=== PATIENT | female | born 1995 | race Caucasian/White ===

== ENCOUNTER 2017-12-16 02:28 | Emergency (ER) | payer OTHER, MEDICAID, SELFPAY ==
[2017-12-16 02:31] VITALS: BP 122/77; PULSE 95; RESP 16; TEMP 36.5; O2SAT 98
--- NOTE | 2017-12-16 02:43 | DI.RAD_ITS ---
SYMPTOM/DIAGNOSIS: COUGH, CHEST PAIN PA AND LATERAL CHEST: The heart is normal in size. The lungs are clear. The mediastinal structures and pleura appear intact. CONCLUSION: Normal chest.
--- NOTE | 2017-12-16 02:56 | W.ED.GENAD ---
Discharge Plan Disposition Patient Disposition: HOME Discharge Details Chief Complaint: RespSymp Clinical Impression: Contusion of rib on left side, Bronchitis ED Provider: Celestino Bingham Home Meds and New Rx's Prescriptions: New doxycycline hyclate 100 mg capsule 100 mg PO BID Qty: 11 RF: 0 lidocaine 5 % adhesive patch,medicated 1 patch TP DAILY Qty: 7 RF: 0 Continue citalopram [Celexa] 10 MG tablet 10 mg PO DAILY Qty: 30 RF: 5 Discharge Instructions Instructions: Acute Bronchitis (ED), Rib Contusion (ED) Additional Instructions: Please take ibuprofen 600 mg every 6 hours as needed for pain. Take Tylenol 650 mg every 6 hours as needed for pain. Take antibiotic as prescribed. Please contact your primary care physician to arrange follow-up. Return to the ER for any worsening or new concerning symptoms. Stand Alone Forms: Work Release Medical Decision Making 22-year-old female presents with left lateral rib pain for the past 2 days after coughing spell. Suspect rib contusion versus fracture. Patient is saturating well no respiratory distress. Chest x-ray interpreted by radiology: Clear lungs with no pneumothorax. Given persistence of cough, I am concerned about potential bacterial process. Plan to treat for bronchitis with doxycycline. Ibuprofen and Tylenol given for pain. Lidoderm patch applied. HPI General Mode of arrival: ambulatory. Date/Time Provider Initiated Documentation: 12/16/17 02:42. Limitations to Documentation: no limitations. Information obtained by: patient. HPI Narrative: 22-year-old female presents with chief complaint of rib pain. Patient notes she has had a cough for the past 4-6 weeks. Cough has improved recently but 2 days ago she experienced a coughing fit and had severe pain in her left rib. She continues to have pain with deep inspiration and with cough. Pain is sharp. Patient denies shortness of breath. No fevers. Related Data Home Medications Medication Instructions Recorded Confirmed citalopram [Celexa] 10 mg PO DAILY #30 tab-cap 08/01/16 12/16/17 doxycycline hyclate 100 mg PO BID #11 cap 12/16/17 lidocaine 1 patch TP DAILY #7 each 12/16/17 Previous Rx's Medication Instructions Recorded doxycycline hyclate 100 mg PO BID #11 cap 12/16/17 lidocaine 1 patch TP DAILY #7 each 12/16/17 Allergies Allergy/AdvReac Type Severity Reaction Status Date / Time No Known Allergies Allergy Unverified 12/16/17 02:35 General Stated Complaint: RespSymp LELAND: 4 Review of Systems Constitutional Denies fever(s) Cardiovascular Reports system reviewed and no additional complaints, except as docu Respiratory Reports as per HPI and Reports cough Gastrointestinal Denies abdominal pain PFSH Family History Grandfather Diabetes Medical History Depression Herpes simplex Social History Smoking/Tobacco Use Status: Current-Occasional Surgical History Dilation and curettage Exam Const General: cooperative and no acute distress HENMT Mouth: moist mucous membranes Eyes Conjunctivae: normal conjunctivae Sclera: normal sclerae Chest Chest: tenderness rib (left lateral 6th) Resp Effort & Inspection: cough Auscultation: clear to auscultation bilaterally, no rales, no rhonchi and no wheezes Cardio Jugular venous pressure: no JVD Rate: regular rate and not tachycardic Rhythm: regular rhythm Neuro General: alert and awake Course Vital Signs Temperature 36.5 C 12/16/17 02:31 Pulse 95 H 12/16/17 02:31 Respiratory Rate 16 12/16/17 02:31 Blood Pressure 122/77 12/16/17 02:31 Pulse Oximetry 98 12/16/17 02:31 Temperature 36.5 C 12/16/17 02:31 Temperature Source Skin 12/16/17 02:31 Pulse 95 H 12/16/17 02:31 Respiratory Rate 16 12/16/17 02:31 Respiratory Effort Non-Labored 12/16/17 02:36 Respiratory Depth Normal 12/16/17 02:36 Blood Pressure 122/77 12/16/17 02:31 Pulse Oximetry 98 12/16/17 02:31 Pain Level 5 12/16/17 02:31
--- NOTE | 2017-12-16 03:05 | DI.VRAD_ITS ---
EXAM: XR Chest, 2 Views EXAM DATE/TIME: 12/16/2017 2:44 AM CLINICAL HISTORY: 22 years old, female; Signs and symptoms; Cough TECHNIQUE: XR of the chest, 2 views. COMPARISON: No relevant prior studies available. FINDINGS: Lungs: Clear lungs. Pleural space: No pneumothorax. No sizable pleural effusion. Heart/Mediastinum: No cardiomegaly. Bones/joints: Unremarkable for patient's age. IMPRESSION: Clear lungs. Dictated and Authenticated by: Seb Munoz MD. Ordering:KATH GURROLA MD
--- NOTE | 2017-12-16 03:25 | ED.GENADUL_ITS ---
Discharge Plan Disposition Patient Disposition: HOME Discharge Details Chief Complaint: RespSymp Clinical Impression: Contusion of rib on left side, Bronchitis ED Provider: Celestino Bingham Home Meds and New Rx's Prescriptions: New doxycycline hyclate 100 mg capsule 100 mg PO BID Qty: 11 RF: 0 lidocaine 5 % adhesive patch,medicated 1 patch TP DAILY Qty: 7 RF: 0 Continue citalopram [Celexa] 10 MG tablet 10 mg PO DAILY Qty: 30 RF: 5 Discharge Instructions Instructions: Acute Bronchitis (ED), Rib Contusion (ED) Additional Instructions: Please take ibuprofen 600 mg every 6 hours as needed for pain. Take Tylenol 650 mg every 6 hours as needed for pain. Take antibiotic as prescribed. Please contact your primary care physician to arrange follow-up. Return to the ER for any worsening or new concerning symptoms. Stand Alone Forms: Work Release Medical Decision Making 22-year-old female presents with left lateral rib pain for the past 2 days after coughing spell. Suspect rib contusion versus fracture. Patient is saturating well no respiratory distress. Chest x-ray interpreted by radiology: Clear lungs with no pneumothorax. Given persistence of cough, I am concerned about potential bacterial process. Plan to treat for bronchitis with doxycycline. Ibuprofen and Tylenol given for pain. Lidoderm patch applied. HPI General Mode of arrival: ambulatory . Date/Time Provider Initiated Documentation: 12/16/17 02:42 . Limitations to Documentation: no limitations . Information obtained by: patient . HPI Narrative: 22-year-old female presents with chief complaint of rib pain. Patient notes she has had a cough for the past 4-6 weeks. Cough has improved recently but 2 days ago she experienced a coughing fit and had severe pain in her left rib. She continues to have pain with deep inspiration and with cough. Pain is sharp. Patient denies shortness of breath. No fevers. Related Data Home Medications Medication Instructions Recorded Confirmed citalopram [Celexa] 10 mg PO DAILY #30 tab-cap 08/01/16 12/16/17 doxycycline hyclate 100 mg PO BID #11 cap 12/16/17 lidocaine 1 patch TP DAILY #7 each 12/16/17 Previous Rx's Medication Instructions Recorded doxycycline hyclate 100 mg PO BID #11 cap 12/16/17 lidocaine 1 patch TP DAILY #7 each 12/16/17 Allergies Allergy/AdvReac Type Severity Reaction Status Date / Time No Known Allergies Allergy Unverified 12/16/17 02:35 General Stated Complaint: RespSymp LELAND: 4 Review of Systems Constitutional Denies fever(s) Cardiovascular Reports system reviewed and no additional complaints, except as docu Respiratory Reports as per HPI and Reports cough Gastrointestinal Denies abdominal pain PFSH Family History Grandfather Diabetes Medical History Depression Herpes simplex Social History Smoking/Tobacco Use Status: Current-Occasional Surgical History Dilation and curettage Exam Const General: cooperative and no acute distress HENMT Mouth: moist mucous membranes Eyes Conjunctivae: normal conjunctivae Sclera: normal sclerae Chest Chest: tenderness rib (left lateral 6th) Resp Effort & Inspection: cough Auscultation: clear to auscultation bilaterally, no rales, no rhonchi and no wheezes Cardio Jugular venous pressure: no JVD Rate: regular rate and not tachycardic Rhythm: regular rhythm Neuro General: alert and awake Course Vital Signs Temperature 36.5 C 12/16/17 02:31 Pulse 95 H 12/16/17 02:31 Respiratory Rate 16 12/16/17 02:31 Blood Pressure 122/77 12/16/17 02:31 Pulse Oximetry 98 12/16/17 02:31 Temperature 36.5 C 12/16/17 02:31 Temperature Source Skin 12/16/17 02:31 Pulse 95 H 12/16/17 02:31 Respiratory Rate 16 12/16/17 02:31 Respiratory Effort Non-Labored 12/16/17 02:36 Respiratory Depth Normal 12/16/17 02:36 Blood Pressure 122/77 12/16/17 02:31 Pulse Oximetry 98 12/16/17 02:31 Pain Level 5 12/16/17 02:31
[2017-12-16] MEDS: Acetaminophen 325 MG TAB 650 MG PO (03:29)
[2017-12-16] MEDS: Doxycycline Hyclate 100 MG CAP PO (03:29)
[2017-12-16] MEDS: Ibuprofen 600 MG TAB PO (03:30)
[2017-12-16] MEDS: Lidocaine 5% Patch 1 PATCH TP (03:30)
== END 2017-12-16 03:38 | disposition home or self-care (01) ==
LOC: ER 03:47
PROVIDERS: Emergency Provider Student in an Organized Health Care Education/Training Program; PCP Family Medicine
DX: S20.212A Contusion of left front wall of thorax, initial encounter (principal); J20.9 Acute bronchitis, unspecified; X50.9XXA Other and unspecified overexertion or strenuous movements or postures, initial encounter
CPT/HCPCS: 99283; 71046

== ENCOUNTER 2019-11-04 05:13 | Outpatient (CLI) | payer MEDICAID, SELFPAY ==
[2019-11-04 16:11] LABS: Kit/Specimen SENT
== END 2019-11-04 05:33 ==
PROVIDERS: PCP Family Medicine; Visit Provider Obstetrics & Gynecology Maternal & Fetal Medicine
DX: O28.3 Abnormal ultrasonic finding on antenatal screening of mother (principal)
CPT/HCPCS: 36415

== ENCOUNTER 2020-05-04 19:11 | Outpatient (REF) | payer MEDICAID, SELFPAY ==
[2020-05-04 20:11] LABS: BUN 13 mg/dL (7-18); CREATININE 0.6 mg/dL (0.55-1.02); Calcium 9.3 mg/dL (8.5-10.1); Chloride 104 mmol/L (98-107); Glucose 84 mg/dL (74-106); Potassium 3.7 mmol/L (3.5-5.1); Sodium 141 mmol/L (136-145); TSH (W/Ref FT4) 0.88 uIU/mL (0.36-3.74)
[2020-05-04 20:25] LABS: HCT 37.1 % (36.0-46.0); HGB 11.9 g/dL (11.2-15.7); MCH 27.9 pg (27.0-33.0); MCHC 32.1 % (32.0-36.0); MCV 86.9 fL (80-95); MPV 10.5 fL (8.0-11.0); Platelet Count 262 10^3/uL (130-400); RBC 4.27 10^6/uL (3.93-5.22); RDW 14.5 % (11.7-14.6); RDW-SD 45.8 fL; WBC 5.91 10^3/uL (4.4-10.8)
[2020-05-05 05:02] LABS: Vitamin D 25 Total 13.9 ng/ml (30-100)
== END 2020-05-04 19:12 | disposition home or self-care (01) ==
LOC: NCHCN 19:11
PROVIDERS: PCP Family Medicine; Visit Provider Nurse Practitioner Psychiatric/Mental Health
DX: F32.9 Major depressive disorder, single episode, unspecified (principal); E55.9 Vitamin D deficiency, unspecified
CPT/HCPCS: 80048; 82306; 85027; 84443

== ENCOUNTER 2021-10-02 11:30 | Outpatient (REF) | payer MEDICAID, SELFPAY ==
--- NOTE | 2021-10-02 11:00 | PAPFT_PTH ---
PATIENT: Luis Funes LOC: NCN #:[id number] AGE/SX: 26/F ROOM: RE10/02/[address]: Luisana Rob : 1995 BED: DIS: 10/02/2021 SPEC #: [id number] RECD: 10/02/21 17:04 STATUS: QUYNH [facility] #: [id number] POP: 10/02/21 11:[address]: Luisana Rob DEPT: [facility] Cytology RECD BY: Catherine Orozco Tissues: 1 - CX/ENDOCX FOR PAP SMEARS Procedures: PAP THIN PREP/UVM Screening HPV DNA PROBE Comments: [id number]
[2021-10-02 15:25] LABS: TSH (W/Ref FT4) 2.63 uIU/mL (0.36-3.74)
== END 2021-10-02 11:31 | disposition home or self-care (01) ==
LOC: NCHCN 11:30
PROVIDERS: PCP Family Medicine; Visit Provider Family Medicine
DX: Z12.4 Encounter for screening for malignant neoplasm of cervix (principal); Z11.51 Encounter for screening for human papillomavirus (HPV)
CPT/HCPCS: 88142; 84443; 87624

== ENCOUNTER 2023-03-15 10:58 | Emergency (ER) | payer MEDICAID, SELFPAY ==
[2023-03-15 11:03] VITALS: BP 114/63; PULSE 75; RESP 16; TEMP 36.9; O2SAT 100
--- NOTE | 2023-03-15 11:15 | DI.RAD_ITS ---
Exam(s) XR ANKLE LT COMPLETE EXAM: XR ANKLE LT COMPLETE CLINICAL HISTORY: fall/pain TECHNIQUE: 2D digital imaging was performed of the left ankle. Three images were obtained. AP, lat eral and oblique views were obtained. COMPARISON: No exams were available for comparison FINDINGS: BONES: No acute fracture is present. No bony destructive lesion is seen. JOINTS:The ankle mortise is normally aligned. SOFT TISSUE: Normal. IMPRESSION: No acute fracture or dislocation. DATA REPOSITORY: RADIATION DOSE DELIVERED:
--- NOTE | 2023-03-15 13:14 | W.ED.GENAD ---
HPI General Stated Complaint: Orthopedic LELAND: 4 Date/Time Provider Initiated Documentation: 03/15/23 11:15. Limitations to Documentation: no limitations. Information obtained by: patient. History of Present Illness Left ankle injury moderate 6 aching left and lower extremity reports no radiation hour(s) (1) constant Immobilization improves symptom(s), Movement worsens symptoms no other symptoms. none Related Data Home Medications Medication Instructions Recorded Confirmed citalopram 10 mg tablet (Celexa) 10 mg PO DAILY #30 tab-caps 08/01/16 03/15/23 Allergies Allergy/AdvReac Type Severity Reaction Status Date / Time No Known Allergies Allergy Unverified 03/15/23 11:06 Review of Systems Constitutional Constitutional: Denies weakness Musculoskeletal Musculoskeletal: Denies numbness and Reports tingling Integumentary/Breasts Skin/Breast: Denies rash Neurologic Neurologic: Denies numbness, Reports tingling and Denies weakness PFSH All Active Problems Ankle sprain (Acute) Medical History Depression Onset after ETOP. Rx for Citalopram. Referred to [facility] behavioral health specialist. Herpes simplex oral lesions Surgical History Dilation and curettage elective termination of Family History Grandfather Diabetes Social History Smoking/Tobacco Use Status: Former Tobacco Use Smoking risk assessment performed?: Yes Alcohol Intake: never Drug use: Never Substance use type: does not use Do you feel safe at home: Yes Do you feel safe in your relationship?: Yes Exam Const General: cooperative, healthy appearing, comfortable and no acute distress Orientation: alert and awake HENMT Head: normal to inspection, normocephalic and atraumatic Mouth: moist mucous membranes Eyes Conjunctivae: conjunctivae normal Neck Neck: normal visual inspection, trachea midline and supple Resp Effort & Inspection: normal respiratory effort and able to speak in complete sentences Cardio Rate: regular rate Rhythm: regular rhythm Skin General skin exam: no rashes or lesions noted Neuro General: patient alert, patient awake, moves all extremities and no focal motor deficits Sensory Exam: no sensory deficits noted Extrem General: capillary refill normal Other: Left ankle and foot exam: Visual inspection without erythema, ecchymosis, obvious deformity. There is mild discomfort about the lateral malleolus. There is discomfort diffusely just superior to the lateral malleolus. There is no discomfort to the medial malleolus. Foot is nontender. Patient able to demonstrate wiggling of all digits. Patient able to demonstrate limited flexion and extension of the ankle secondary to discomfort. Neuro, vascular, tendon intact. No obvious instability but this was difficult to evaluate secondary to discomfort and guarding. Psych Appearance: grossly normal Mental Status: mental status grossly normal Course Vital Signs Vital signs: Vital Signs Temperature 36.9 C 03/15/23 11:03 Pulse 75 03/15/23 11:03 Respiratory Rate 16 03/15/23 11:03 Blood Pressure 114/63 03/15/23 11:03 Pulse Oximetry 100 03/15/23 11:03 Temperature 36.9 C 03/15/23 11:03 Temperature Source Temporal Artery Scan 03/15/23 11:03 Pulse 75 03/15/23 11:03 Respiratory Rate 16 03/15/23 11:03 Respiratory Effort Normal, Non-Labored 03/15/23 11:07 Blood Pressure 114/63 03/15/23 11:03 Blood Pressure Position Sitting 03/15/23 11:03 Pulse Oximetry 100 03/15/23 11:03 Oxygen Delivery Method Room Air 03/15/23 11:03 Oxygen Flow Rate 0 03/15/23 11:03 Pain Level 5 03/15/23 11:40 Lab/Test Results Lab/Test Results: POC- Test(urine) Negative Medical Decision Making 28-year-old female who had a mechanical slip and fall twisting her left ankle. No other injuries. Examination is without obvious orthopedic deformity. Plan to obtain left ankle x-ray and reassess Left ankle x-ray read by me and confirmed by radiology as no acute bony abnormality. Discussed in length with patient and family. Placed into a ASO brace and crutches were provided with teaching. Discussed the importance of elevation, resting, cold compresses. [id number] Tylenol and/or Motrin as directed. Advancing activity as tolerated. Patient was encouraged to return to the ER for new or evolving symptoms. Otherwise she will contact her PCP in about a week if her symptoms are not improving. Standard discharge and return precautions were provided. Patient understands, is agreeable to this plan, and has no additional questions or concerns upon discharge. This documentation was generated using [employer] system, please disregard any oddities of phrase or misspellings. Medical Records Medical records reviewed: Yes I reviewed the patient's medical records. Quality:[facility] Health Related Social Needs: No Data to Display Discharge Plan Disposition Patient Disposition: Home Condition: Stable Discharge Details Clinical Impression: Ankle sprain Primary Care Provider: Luisana Rob ED Provider: Hernandez Aguilar [place] Meds and New Rx's Prescriptions: Continued citalopram [Celexa] 10 MG tablet 10 mg PO DAILY Qty: 30 Discharge Instructions Instructions: Ankle Sprain (ED) Additional Instructions: X-rays unremarkable for any obvious fracture. Wear ankle brace and use crutches as needed, advance activity as tolerated. Rest, elevate, cool compresses every 2 hours for 20 minutes. Please watch for new or worsening symptoms and return to the ER for any concerns. Lastly, I would like you to contact your primary care provider for outpatient follow-up if your symptoms not improving in the next week or so.
--- NOTE | 2023-03-17 07:38 | NUR.NOTE ---
Accessed Pt charge to obtain the providers name for the [facility] billing.
== END 2023-03-15 13:27 | disposition home or self-care (01) ==
PROVIDERS: Emergency Provider Physician Assistant; PCP Family Medicine
DX: S93.402A Sprain of unspecified ligament of left ankle, initial encounter (principal); Z87.891 Personal history of nicotine dependence; W01.0XXA Fall on same level from slipping, tripping and stumbling without subsequent striking against object, initial encounter; Y93.01 Activity, walking, marching and hiking
CPT/HCPCS: 81025; 99284; 73610

== ENCOUNTER 2023-05-08 05:12 | Outpatient (CLI) | payer MEDICAID, SELFPAY ==
--- NOTE | 2023-05-08 14:51 | TELEFU_ITS ---
Date of service: 05/08/23 Time of Service: 13:00 Nutrition Note NOTE: Luis in for some help with weight mgt today. She has been struggling for some time now. 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 No scheduled exercise - but stays on her feet all day. She takes a womens daily MVI. She just started back on ADHD medication - methylphenidate. States she rarely has time to watch tv. She does mention that when the children go to be, she tends to snack/eat heavily as she remembers that she hasn't eaten all day. She skips breakfast and just has coffee and cruises through her day. We spent most of the rest of appt time going after this low hanging fruit of not eating all day and eating ravenouslsy at the end of the day - pointed out that most successful wt loss strategies involve eating 3-6 times per day and suggested aiming for 3 meals and 1-2 snacks if needed. Reviewed the benefits of getting fiber and protein throughout the day for satiety but also to support her lean muscle mass - I would estimate she has many days of coming up short for protein intake. We reviewed simple menu planning with [id number]-[id number]-together items and trying to be somewhat repetitious with cycling between 2-3 menus, especially for breakfast and lunches (dinner is the family meal and she feels this is well balanced when she is able to sit and enjoy it). Reviewed some meal set ups with cottage cheese, chicken/tuna salad, smoothies, no bake protein bites, nuts and seeds, veggies for finger foods... I reviewed that moving as a baseling is good but should start getting some scheduled exercise in - reviewed more HIIT types of activities as well as emphasized strength training for help with wt, improving metabolism, and getting back some of the energy that she feels is zapped by the end of the day - I suggested one of the reasons she may feel exhasuseted is that she is not meeting her energy needs throughout the day. Luis will work at getting regular meals and 1-2 PLANNED snacks that are more like mini-meals (with fiber and protein component in place). She took my card and was told she can email/call with any questions, if she needs help with setting up her menus for meals and snacks more, or just wants to run her menus by me for comments. Time Spent in Nutritional Counseling and Treatment: 45 minutes
== END 2023-05-08 05:13 | disposition home or self-care (01) ==
PROVIDERS: PCP Family Medicine; Visit Provider Dietitian, Registered
DX: E66.3 Overweight (principal); Z71.3 Dietary counseling and surveillance
CPT/HCPCS: 00123; 97802

== ENCOUNTER 2024-04-17 08:33 | Emergency (ER) | payer MEDICAID, SELFPAY ==
[2024-04-17 08:36] VITALS: BP 122/74; PULSE 105; RESP 18; TEMP 36.8; O2SAT 97
[2024-04-17] MEDS: Acetaminophen 325 MG TAB 650 MG PO (09:09)
[2024-04-17] MEDS: Ibuprofen 600 MG TAB PO (09:10)
[2024-04-17 09:14] VITALS: BP 122/74; PULSE 105; RESP 18; TEMP 36.8; O2SAT 97
--- NOTE | 2024-04-17 09:37 | ED.GENADUL_ITS ---
Discharge Plan Disposition Patient Disposition: Home Discharge Details Clinical Impression: Acute streptococcal pharyngitis Primary Care Provider: Luisana Rob ED Provider: Celestino Bingham Home Meds and New Rx's Prescriptions: Continued semaglutide 10 mg subcut QWEEK Discharge Instructions Instructions: Strep Throat ED Additional Instructions: You were given penicillin injection here in the emergency department today. Please rest over the next few days. Please increase oral hydration and drink plenty of clear fluids. Please follow-up with your primary care physician. Return to the emergency department immediately for any worsening or new concerning symptoms. Referrals: Luisana Rob MD [Primary Care Provider] - HPI General Date/Time Provider Initiated Documentation: 04/17/24 08:48 . HPI Narrative: HISTORY OF PRESENT ILLNESS 29-year-old female with influenza-like illness: congestion, body aches, sore throat, intermittent fever (T-max 101?F) for 2 days. Severe generalized body aches, significant fatigue, sore, swollen throat for 3 days. Bilateral ear pain, difficulty breathing due to sore throat. No COVID-19 or influenza vaccines this year. Transient fever (101?F) resolved after medication and 40 hours of sleep. 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 No tobacco, alcohol, or drug use. Upper respiratory symptoms: head congestion, difficulty eating; no lower respiratory symptoms except occasional cough. Hydrating with water. Occasional leg swelling, no current edema. No urinary symptoms or skin rashes. Takes acetylsalicylic acid once a week. Related Data Home Medications ?Medication ?Instructions ?Recorded ?Confirmed semaglutide 10 mg subcut QWEEK 04/17/24 04/17/24 Allergies Allergy/AdvReac Type Severity Reaction Status Date / Time No Known Allergies Allergy Unverified 04/17/24 08:38 General Stated Complaint: RespSymp LELAND: 4 Review of Systems Narrative: REVIEW OF SYSTEMS Positive: upper respiratory symptoms (head congestion, difficulty eating), transient fever, bilateral ear pain, difficulty breathing due to sore throat, occasional leg swelling. Negative: lower respiratory symptoms (except occasional cough), urinary symptoms, skin rashes, current edema. Exam Narrative Exam Narrative: PHYSICAL EXAM General Appearance: Normotensive, slightly tachycardic (105 bpm), saturating well, no respiratory distress. Vital signs: Normotensive, slightly tachycardic (105 bpm), saturating well. HEENT: Bilateral throat exudate. Bulging tympanic membranes, no fluid behind eardrum. Respiratory: Lungs clear. Cardiovascular: Slightly fast, regular heart rhythm, no murmurs. Gastrointestinal: Soft, nondistended abdomen, no tenderness. Lymphatic: Anterior cervical lymphadenopathy bilaterally. Back, Musculoskeletal: No CVA tenderness. Skin: Warm and dry, no rash. Neurological: Normal. Course Vital Signs Vital signs: Vital Signs Temperature 36.8 C 04/17/24 08:36 Pulse 105 H 04/17/24 08:36 Respiratory Rate 18 04/17/24 08:36 Blood Pressure 122/74 04/17/24 08:36 Pulse Oximetry 97 04/17/24 08:36 Temperature 36.8 C 04/17/24 09:14 Temperature Source Oral 04/17/24 09:14 Pulse 105 H 04/17/24 09:14 Respiratory Rate 18 04/17/24 09:14 Blood Pressure 122/74 04/17/24 09:14 Blood Pressure Position Sitting 04/17/24 09:14 Pulse Oximetry 97 04/17/24 09:14 Oxygen Delivery Method Room Air 04/17/24 09:14 Oxygen Flow Rate 0 04/17/24 09:14 Pain Level 6 04/17/24 09:14 Lab/Test Results Lab/Test Results: POC Strep Test-TERRY(Rapid) Start: 04/17/24 09:17 Freq: Status: Active Protocol: Document 04/17/24 09:29 CT (Rec: 04/17/24 09:32 CT [id number]) Strep test-TERRY(Rapid)-POC POC-Strep test-TERRY (Rapid) Positive POC-Strep test-TERRY (Rapid) Positive Medical Decision Making ASSESSMENT AND PLAN Initial Assessment: 29-year-old female with influenza-like illness including congestion, body aches, sore throat, intermittent fever with T-max of 101?F over the past 2 days. Slightly tachycardic at 105 bpm, normotensive, lungs clear, no CVA tenderness. Differential Diagnosis: - Influenza-like illness: congestion, body aches, sore throat, intermittent fever. Negative rapid flu and influenza tests. Plan: Tylenol and ibuprofen for pain and fever, increase oral hydration, rest. - Strep throat: positive rapid strep test, sore throat with exudate, bilateral anterior cervical lymphadenopathy. Plan: penicillin IM injection, dexamethasone for throat swelling and pain. - Tachycardia: slightly tachycardic at 105 bpm. Plan: increase hydration, manage fever with Tylenol and ibuprofen to normalize heart rate. ED Course: - Physical exam: lungs clear, no CVA tenderness, anterior cervical lymphadenopathy bilaterally, tympanic membranes bulging, no fluid behind eardrums. No stridor or trismus. - Diagnostic tests: rapid strep test positive, rapid flu and influenza tests negative. - Medications: Tylenol and ibuprofen for pain and fever, dexamethasone for throat swelling and pain, penicillin IM injection. - Patient encouraged to increase oral hydration and rest. Final Assessment: Patient with influenza-like illness and positive strep throat. Treated with Tylenol, ibuprofen, dexamethasone, and penicillin IM injection. Encouraged to increase hydration and rest. Clinical Impression: - Influenza-like illness - Strep throat - Tachycardia Disposition: - Discharge - Follow-Up: Usual and customary discharge instructions reviewed with the patient. MDM Components Evaluation: - Number of Differential Diagnoses or Management Options: Influenza-like illness, Strep throat, Tachycardia. - Amount and Complexity of Data Reviewed: Rapid strep test, rapid flu and influenza tests, physical exam findings. - Risk of Complication and Morbidity or Mortality: Slightly tachycardic, risk of dehydration, and complications from untreated strep throat. This document was written with the assistance of [employer]. The patient consented to its use. Lab Data Lab results reviewed: Yes I reviewed the patient's lab results. Quality:SDOH Health Related Social Needs: No Data to Display PFSH All Active Problems Acute streptococcal pharyngitis (Acute) Medical History Depression Onset after ETOP. Rx for Citalopram. Referred to [facility] behavioral health specialist. Herpes simplex oral lesions Surgical History Dilation and curettage elective termination of Family History Grandfather Diabetes Social History Smoking/Tobacco Use Status: Former Tobacco Use Smoking risk assessment performed?: Yes Alcohol Intake: never Drug use: Never Substance use type: does not use Do you feel safe at home: Yes Do you feel safe in your relationship?: Yes
[2024-04-17] MEDS: Dexamethasone 10 MG/ML VIAL PO (09:44)
[2024-04-17 09:45] VITALS: BP 127/52; PULSE 105; TEMP 37.5; O2SAT 98
[2024-04-17 09:55] LABS: COVID-19 PCR Negative (Negative); Influenza A PCR Negative (Negative); Influenza B PCR Negative (Negative); RSV PCR Negative (Negative)
[2024-04-17 09:56] LABS: Source Nasopharynx
== END 2024-04-17 09:55 | disposition home or self-care (01) ==
PROVIDERS: Emergency Provider Student in an Organized Health Care Education/Training Program; PCP Family Medicine
DX: J02.0 Streptococcal pharyngitis (principal); R50.9 Fever, unspecified; R00.0 Tachycardia, unspecified
CPT/HCPCS: 87426; 87637; 87880; 96372; 99284; J0561; J1100

== ENCOUNTER 2025-01-21 09:40 | Outpatient (CLI) | payer MEDICAID, SELFPAY ==
[2025-01-21 08:52] LABS: Abs Immature Grans 0.01 10^3/uL (0.0-0.06); HCT 39.6 % (36.0-46.0); HGB 12.6 g/dL (11.2-15.7); Immature Grans % 0.2 %; MCH 28.2 pg (27.0-33.0); MCHC 31.8 % (32.0-36.0); MCV 89 fL (80-95); MPV 9.4 fL (8.0-11.0); Platelet Count 265 10^3/uL (130-400); RBC 4.47 10^6/uL (3.93-5.22); RDW 12.9 % (11.7-14.6); RDW-SD 42.0 fL; WBC 4.72 10^3/uL (4.4-10.8)
[2025-01-21 10:48] LABS: ALT 18 U/L (10-49); AST 17 U/L (<34); Albumin 4.4 g/dL (3.4-5.0); Alkaline Phosphatase 71 U/L (46-116); Anion Gap 6.1 mmol/L (3-11); BUN 9 mg/dL (9-23); Bilirubin, Total 0.40 mg/dL (0.2-1.2); CO2 27.9 mmol/L (20.0-31.0); Calcium 9.2 mg/dL (8.3-10.6); Chloride 107 mmol/L (98-107); Cholesterol 179 mg/dL (<200); Glucose 96 mg/dL (74-106); HDL Cholesterol 61 mg/dL (>40); Iron 106 ug/dL (50-170); Potassium 4.0 mmol/L (3.5-5.1); Sodium 141 mmol/L (136-145); Total Iron Binding Capacity 363 ug/dL (250-425); Total Protein 7.3 g/dL (5.7-8.2); Transferrin Sat 29 % (15-50)
[2025-01-21 10:49] LABS: Vitamin D 25 Total 22 ng/mL (30-100)
[2025-01-21 10:50] LABS: TSH 2.70 uIU/mL (0.55-4.78)
[2025-01-21 11:40] LABS: Ferritin 21 ng/mL (7-271); Vitamin B12 351 pg/mL (211-911)
[2025-01-21 11:58] LABS: Hemoglobin A1C 5.4 % (<5.7)
== END 2025-01-21 09:41 | disposition home or self-care (01) ==
LOC: LBO 09:40
PROVIDERS: PCP Family Medicine; Visit Provider Surgery
DX: E66.813 Obesity, class 3 (principal); Z68.41 Body mass index [BMI] 40.0-44.9, adult; R63.5 Abnormal weight gain
CPT/HCPCS: 36415; 80053; 80061; 82306; 82607; 82728; 83036; 83525; 83540; 83550; 84443; 85025